=== PATIENT | male | born 1985 | race Two or more races ===

== ENCOUNTER 2016-09-30 16:25 | Emergency (ER) | payer SELFPAY ==
[~2016-09-30] VITALS: Ht 175.3 cm; Wt 72.6 kg
[2016-09-30 17:14] LABS: BASOPHILS % (AUTO) 1.6 % (0.0-2.0); EOSINOPHILS % (AUTO) 0.9 % (0.0-3.0); LYMPHOCYTES % (AUTO) 26.6 % (20.0-45.0); MEAN CORPUSCULAR HEMOGLOBIN 27.2 PG (27.0-31.0); MEAN CORPUSCULAR HGB CONC 33.1 G/DL (32.0-36.0); MEAN CORPUSCULAR VOLUME 82 FL (80-99); MONOCYTES % (AUTO) 9.3 % (1.0-10.0); NEUTROPHILS % (AUTO) 61.6 % (45.0-75.0); PLATELET COUNT 223 K/UL (150-450); RED BLOOD COUNT 5.08 M/UL (4.70-6.10); RED CELL DISTRIBUTION WIDTH 12.7 % (11.6-14.8); WHITE BLOOD COUNT 7.4 K/UL (4.8-10.8)
[2016-09-30 17:29] LABS: ACETAMINOPHEN < 10 ug/mL (10-30); ALANINE AMINOTRANSFERASE 62 U/L (3-41); ALBUMIN/GLOBULIN RATIO 1.5 (1.0-2.7); ALCOHOL < 10 mg/dL; ANION GAP 17 (5-15); ASPARTATE AMINO TRANSFERASE 47 U/L (5-40); CALCIUM 9.3 mg/dL (8.6-10.2); CARBON DIOXIDE 23 mEQ/L (20-30); CHLORIDE 99 mEQ/L (98-107); CREATININE 1.1 mg/dL (0.7-1.2); GLOMERULAR FILTRATION RATE > 60 mL/min (>60); HEMOLYSIS 136; POTASSIUM 5.3 mEQ/L (3.4-4.9); SODIUM 139 mEQ/L (135-145); TOTAL PROTEIN 7.6 g/dL (6.6-8.7)
[2016-09-30 17:32] VITALS: BP 137/89
[2016-09-30 17:36] LABS: APPEARANCE,URINE CLEAR; KETONES,URINE NEGATIVE (NEGATIVE); LEUKOCYTE ESTERASE ,URINE NEGATIVE (NEGATIVE); NITRITE,URINE NEGATIVE (NEGATIVE); PH,URINE 6.5 (4.5-8.0); PROTEIN,URINE NEGATIVE (NEGATIVE); UROBILINOGEN,URINE NORMAL MG/DL (0.0-1.0)
--- NOTE | 2016-09-30 17:54 | Emergency Room Report ---
History of Present Illness General Chief Complaint: Behavioral Complaint Source: Patient Present Illness HPI The patient presents after having a suicide attempt allegedly drinking alcohol and taking Thorazine. He did this yesterday and also repeated today. He's doing this because the voices are telling him to do so. He has not changed his medication recently. He has a history of bipolar disorder. Allergies: Coded Allergies: No Known Allergies (Unverified , 09/30/16) Patient History Past Medical History: see triage record Social History: Reports: alcohol use Reviewed Nursing Documentation: PMH: Agreed, PSxH: Agreed Nursing Documentation-PMH Hx Cardiac Problems: No Hx Hypertension: No Hx Pacemaker: No Hx Asthma: No Hx COPD: No Hx Diabetes: No Hx Cancer: No Hx Gastrointestinal Problems: No Hx Dialysis: No History Of Psychiatric Problem: Yes - bipolar ,depression ,ptsd Hx Neurological Problems: No Hx Cerebrovascular Accident: No Hx Seizures: No Review of Systems All Other Systems: negative except mentioned in HPI Physical Exam Vital Signs Date Time Temp Pulse Resp B/P Pulse Ox O2 Delivery O2 Flow Rate FiO2 09/30/16 16:22 98.1 92 16 120/80 98 Room Air Sp02 EP Interpretation: reviewed, normal General Appearance: no apparent distress, GCS 15, lethargic Head: normocephalic Eyes: bilateral eye PERRL, bilateral eye Scleral Injection ENT: moist mucus membranes Neck: supple Respiratory: lungs clear, normal breath sounds Cardiovascular #1: regular rate, rhythm Cardiovascular #2: 2+ radial (R) Gastrointestinal: normal inspection, normal bowel sounds, non tender, no mass, non-distended Musculoskeletal: back normal, gait/station normal, normal range of motion Neurologic: alert, oriented x3, other - ataxic but sits without difficulty Psychiatric: other - flat affect with lethargy Skin: normal inspection, warm/dry Medical Decision Making Diagnostic Impression: Primary Impression: Drug ingestion Qualified Codes: T50.902A - Poisoning by unspecified drugs, medicaments and biological substances, intentional self-harm, initial encounter Additional Impression: Schizophrenia Qualified Codes: F20.9 - Schizophrenia, unspecified ER Course Patient presents was ideation. He says that he is on herself but the voices are telling him to do so. He plans continue taking overdose of his medications. At this point he needs evaluation with labs. The patient was he some IV hydration as he took excess Thorazine recently. Laboratory patient evaluation was basically unremarkable. The patient is medically stable at 1745. Cleared for D/C with family by Dr. Esquivel. He was coherent and abusive with her. Plan agreed upon to d/c with uncle. Denies suicidal ideation. Patient stable for outpatient observation and treatment. Signed out to Dr. Dhaliwal awaiting ride with family. Laboratory Tests Test 09/30/16 16:50 White Blood Count 7.4 K/UL (4.8-10.8) Red Blood Count 5.08 M/UL (4.70-6.10) Hemoglobin 13.8 G/DL (14.2-18.0) L Hematocrit 41.9 % (42.0-52.0) L Mean Corpuscular Volume 82 FL (80-99) Mean Corpuscular Hemoglobin 27.2 PG (27.0-31.0) Mean Corpuscular Hemoglobin Concent 33.1 G/DL (32.0-36.0) Red Cell Distribution Width 12.7 % (11.6-14.8) Platelet Count 223 K/UL (150-450) Mean Platelet Volume 8.0 FL (6.5-10.1) Neutrophils (%) (Auto) 61.6 % (45.0-75.0) Lymphocytes (%) (Auto) 26.6 % (20.0-45.0) Monocytes (%) (Auto) 9.3 % (1.0-10.0) Eosinophils (%) (Auto) 0.9 % (0.0-3.0) Basophils (%) (Auto) 1.6 % (0.0-2.0) Urine Color Pale yellow Urine Appearance Clear Urine pH 6.5 (4.5-8.0) Urine Specific [place] 1.010 (1.005-1.035) Urine Protein Negative (NEGATIVE) Urine Glucose (UA) Negative (NEGATIVE) Urine Ketones Negative (NEGATIVE) Urine Occult Blood Negative (NEGATIVE) Urine Nitrite Negative (NEGATIVE) Urine Bilirubin Negative (NEGATIVE) Urine Urobilinogen Normal MG/DL (0.0-1.0) Urine Leukocyte Esterase Negative (NEGATIVE) Sodium Level 139 mEQ/L (135-145) Potassium Level 5.3 mEQ/L (3.4-4.9) H Chloride Level 99 mEQ/L (98-107) Carbon Dioxide Level 23 mEQ/L (20-30) Anion Gap 17 (5-15) H Blood Urea Nitrogen 9 mg/dL (7-23) Creatinine 1.1 mg/dL (0.7-1.2) Estimate Glomerular Filtration Rate > 60 mL/min (>60) Glucose Level 96 mg/dL (74-106) Calcium Level 9.3 mg/dL (8.6-10.2) Total Bilirubin 0.2 mg/dL (0.0-1.2) Aspartate Amino Transferase (AST) 47 U/L (5-40) H Alanine Aminotransferase (ALT) 62 U/L (3-41) H Alkaline Phosphatase 97 U/L (40-129) Total Creatine Kinase 315 U/L (38-174) H Total Protein 7.6 g/dL (6.6-8.7) Albumin 4.6 g/dL (3.5-5.2) Globulin 3.0 g/dL Albumin/Globulin Ratio 1.5 (1.0-2.7) Salicylates Level < 1 mg/dL (10-30) L Urine Opiates Screen Pending Acetaminophen Level < 10 ug/mL (10-30) L Urine Barbiturates Screen Pending Phencyclidine (PCP) Screen Pending Urine Amphetamines Screen Pending Urine Benzodiazepines Screen Pending Urine Cocaine Screen Pending Urine Marijuana (THC) Screen Pending Serum Alcohol < 10 mg/dL EKG Diagnostic Results Rate: normal Rhythm: NSR ST Segments: no acute changes Rhythm Strip Diag. Results EP Interpretation: yes Rhythm: NSR, no PVC's, no ectopy Chest X-Ray Diagnostic Results Chest X-Ray Ordered: No Status: improved Disposition: HOME, SELF-CARE - with family Condition: Improved Referrals: NOT CHOSEN KIAN/,REFERRING (PCP) Eulalio Browne M.D. Sep 30, 2016 17:54
[2016-09-30 19:10] VITALS: BP 132/84
[2016-09-30 21:20] VITALS: BP 129/88
[2016-10-01 01:00] VITALS: BP 137/83
[2016-10-01 04:44] VITALS: BP 145/87
[2016-10-01 04:50] VITALS: BP 145/87
--- NOTE | 2016-10-01 23:30 | Consultation ---
DATE OF CONSULTATION: HISTORY OF PRESENT ILLNESS: The patient is a 30-year-old male, who has been admitted to the hospital after he took a handful of his Thorazine as well as his Adderall and Wellbutrin. He was brought in after 911 was called for an overdose. Initially, the patient was lethargic, not engaged during the evaluation. Apparently, per [employer], the patient has overdosed on medication the day prior. During the evaluation, the patient is presenting with no anxiety or agitation. He was irritable and stated that he does not need to see a psychiatrist and would like to be discharged. He denied any suicidal or homicidal ideation. He told Dr. Browne that he has had auditory hallucination and the voices were telling him to kill himself. Then, he told me that he had suicidal ideation. He took go away. PAST PSYCHIATRIC HISTORY: Apparently, he was diagnosed with bipolar disorder with psychotic features versus schizophrenia. He has had several psychiatric hospitalizations. He sees a psychiatrist at a clinic in [place]. He has been prescribed Adderall , Wellbutrin, and Thorazine. He has a lawsuit while on risperidone as he got gynecomastia. The patient states that he has had one suicide attempt in the past where he attempted to strangulate himself with bedsheets. PAST MEDICAL HISTORY: None. ALLERGIES: No known drug allergies. SUBSTANCE ABUSE HISTORY: He denies any illicit drug use or alcohol. MENTAL STATUS EXAMINATION: The patient is oriented x3. Mood is neutral. Affect is constricted. Congruent mood. Thought process is concrete. Thought content, no suicidal or homicidal ideation. ASSESSMENT: AXIS I Bipolar disorder with psychotic features versus schizoaffective disorder with bipolar type. AXIS II Deferred. AXIS III As above. AXIS IV Moderate. AXIS V Global assessment of functioning is 60. PLAN: The patient will be discharged home for further observation. He was instructed to follow up with his psychiatrist after the discharge. At the time of discharge, the patient was not an imminent danger to self or others. He was not gravely disabled. The patient was discharged to his uncle, who is going to be stay with him overnight. Hailey Esquivel M.D. DR: Meredith JOB#: [id number] CC:
--- NOTE | 2016-10-04 20:25 | Cardiology Report ---
APPROVED REPORT EKG Measurement Heart [id number] Normal sinus rhythm Normal ECG
== END 2016-10-01 04:50 | disposition home or self-care (01) ==
LOC: EDBD 16:25 → EMR 17:01
DX: T50.902A Poisoning by unspecified drugs, medicaments and biological substances, intentional self-harm, initial encounter (principal); F20.9 Schizophrenia, unspecified; X58.XXXA Exposure to other specified factors, initial encounter; Y93.9 Activity, unspecified; Y92.9 Unspecified place or not applicable
CPT/HCPCS: 36415; 80053; 80300; 81003; 82550; 85025; 93005; 96374; 99284; G0480; 80329

== ENCOUNTER 2016-10-28 23:38 | Emergency (ER) | payer OTHER ==
[~2016-10-28] VITALS: Ht 170.2 cm; Wt 90.7 kg
[2016-10-28 23:47] VITALS: BP 143/84
--- NOTE | 2016-10-29 00:10 | Emergency Room Report ---
History of Present Illness General Chief Complaint: General Complaint Source: Patient, EMS Present Illness HPI 30-year-old male with a psychiatric history. He presents with chief complaint of right ear pain and fullness. Also with dizziness. Does have some sore throat. No nausea no vomiting. Onset for one hour. He was worried that he may pass out and since he lives alone he called 911. No other complaint. Allergies: Coded Allergies: No Known Allergies (Unverified , 09/30/16) Patient History Past Medical History: see triage record, old chart reviewed, psych hx Past Surgical History: other Pertinent Family History: none Social History: Denies: smoking Immunizations: other Reviewed Nursing Documentation: PMH: Agreed, PSxH: Agreed Nursing Documentation-PMH Past Medical History: No History, Except For Hx Cardiac Problems: No Hx Hypertension: No Hx Pacemaker: No Hx Asthma: No Hx COPD: No Hx Diabetes: No Hx Cancer: No Hx Gastrointestinal Problems: No Hx Dialysis: No History Of Psychiatric Problem: Yes - Anxiety Hx Neurological Problems: No Hx Cerebrovascular Accident: No Hx Seizures: No Review of Systems Eye: Denies: blurred vision, eye pain ENT: Reports: ear pain, Denies: nose congestion, throat swelling Respiratory: Denies: cough, shortness of breath Cardiovascular: Denies: chest pain, palpitations Gastrointestinal: Denies: abdominal pain, diarrhea, nausea, vomiting Musculoskeletal: Denies: back pain, joint pain Skin: Denies: rash Neurological: Denies: headache, numbness Endocrine: Denies: increased thirst, increased urine Hematologic/Lymphatic: Denies: easy bruising All Other Systems: negative except mentioned in HPI Physical Exam Vital Signs Date Time Temp Pulse Resp B/P Pulse Ox O2 Delivery O2 Flow Rate FiO2 10/28/16 23:38 98.1 70 16 143/84 98 Room Air vitals normal Sp02 EP Interpretation: reviewed, normal General Appearance: well appearing, no apparent distress, alert Head: normocephalic, atraumatic Eyes: bilateral eye EOMI, bilateral eye PERRL ENT: hearing grossly normal, normal pharynx, other - Right ear impacted with cerumen. Left TM is normal. Neck: full range of motion, supple, no meningismus Respiratory: chest non-tender, lungs clear, normal breath sounds Cardiovascular #1: regular rate, rhythm, no murmur Gastrointestinal: normal bowel sounds, non tender, no mass, no organomegaly, no bruit, non-distended Musculoskeletal: back normal, gait/station normal, normal range of motion Psychiatric: mood/affect normal Skin: warm/dry Procedures Additional Procedure Procedure Narrative Procedure: Cerumen disimpaction Indication: Cerumen impaction Description: Irrigate the ear canal with normal saline. Using a curet to remove a large cerumen. He checked TMs normal. No perforation. Patient tolerated procedure without a problem. He said he felt better. Medical Decision Making Diagnostic Impression: Primary Impression: Excessive cerumen in right ear canal Additional Impressions: Viral respiratory illness Anxiety ER Course Patient presents with viral illness. No evidence of acute infection. Anxiety is making a situation worse. He felt better with reassurance. We'll discharge home. Last Vital Signs Date Time Temp Pulse Resp B/P Pulse Ox O2 Delivery O2 Flow Rate FiO2 10/28/16 23:47 98.1 16 143/84 98 Room Air 10/28/16 23:38 70 Status: improved Disposition: HOME, SELF-CARE Condition: Stable Additional Instructions: Followup with your DrAngela in 7 days. Return if symptom worsen. AUDREY ROBLERO M.D. Oct 29, 2016 00:10
[2016-10-29 01:05] VITALS: BP 143/84
== END 2016-10-29 01:05 | disposition home or self-care (01) ==
LOC: EDBD 23:38 → EMR 23:51
DX: H61.21 Impacted cerumen, right ear (principal); J06.9 Acute upper respiratory infection, unspecified; B34.9 Viral infection, unspecified; F41.9 Anxiety disorder, unspecified
CPT/HCPCS: 69210; 99282

== ENCOUNTER 2018-06-13 20:49 | Emergency (ER) | payer MEDICAID, OTHER ==
[~2018-06-13] VITALS: Ht 172.7 cm; Wt 113.4 kg
[2018-06-13] MEDS ORDERED: TRAZODONE HCL150 MG ORAL (20:50)
[2018-06-13 20:55] VITALS: BP 145/89
[2018-06-13] MEDS ORDERED: LORazepam Inj 2mg/ml 1ml IV ONE (21:00)
[2018-06-13] MEDS ORDERED: BUSPAR10 MG ORAL (21:06)
--- NOTE | 2018-06-13 21:08 | Emergency Room Report ---
History of Present Illness General Chief Complaint: Chest Pain Source: Patient Present Illness HPI Is a 32-year-old male with a history of schizophrenia. He presents with chief complaint of anxiety and chest pain. Onset for the last hour. Pain is sharp and throbbing to the left chest area. No nausea no vomiting. Not very anxious. He also felt paranoid that people are after him. Denies any alcohol drugs. Nothing made it better. Nothing made it worse. Denies any radiation. Denies any exertional component. No diaphoresis. Pain is 9 out of 10. Allergies: Coded Allergies: HALOPERIDOL (Unverified Allergy, Unknown, 06/13/18) Patient History Past Medical History: see triage record, old chart reviewed, psych hx Past Surgical History: none Pertinent Family History: none Social History: Denies: smoking Immunizations: other Reviewed Nursing Documentation: PMH: Agreed; PSxH: Agreed Nursing Documentation-PMH Past Medical History: No History, Except For Hx Hypertension: Yes Hx Pacemaker: No Hx Asthma: No Hx COPD: No Hx Diabetes: No Hx Cancer: No Hx Gastrointestinal Problems: No Hx Dialysis: No History Of Psychiatric Problem: Yes Hx Neurological Problems: No Hx Cerebrovascular Accident: No Hx Seizures: No Review of Systems Eye: Denies: eye pain, blurred vision ENT: Denies: ear pain, nose congestion, throat swelling Respiratory: Denies: cough, shortness of breath Cardiovascular: Reports: chest pain; Denies: palpitations Gastrointestinal: Denies: abdominal pain, diarrhea, nausea, vomiting Musculoskeletal: Denies: back pain, joint pain Skin: Denies: rash Neurological: Denies: headache, numbness Endocrine: Denies: increased thirst, increased urine Hematologic/Lymphatic: Denies: easy bruising All Other Systems: negative except mentioned in HPI Physical Exam Vital Signs Date Time Temp Pulse Resp B/P (MAP) Pulse Ox O2 Delivery O2 Flow Rate FiO2 06/13/18 20:44 98.2 88 18 118/74 98 Room Air vitals normal Sp02 EP Interpretation: reviewed, normal General Appearance: well appearing, no apparent distress, alert Head: normocephalic, atraumatic Eyes: bilateral eye PERRL, bilateral eye EOMI ENT: hearing grossly normal, normal pharynx Neck: full range of motion, supple, no meningismus Respiratory: chest non-tender, lungs clear, normal breath sounds Cardiovascular #1: regular rate, rhythm, no murmur Gastrointestinal: normal bowel sounds, non tender, no mass, no organomegaly, no bruit, non-distended Musculoskeletal: back normal, gait/station normal, normal range of motion Psychiatric: anxious Skin: warm/dry Medical Decision Making Diagnostic Impression: Primary Impression: Chest pain Qualified Codes: R07.9 - Chest pain, unspecified Additional Impression: Anxiety ER Course Patient with atypical chest pain secondary to anxiety. No evidence of ACS, PE, dissection to name a few. We'll discharge home. EKG Diagnostic Results Rate: normal Rhythm: NSR ST Segments: no acute changes ASA given to the pt in ED: No Rhythm Strip Diag. Results EP Interpretation: yes Rate: 93 Rhythm: NSR, no PVC's, no ectopy Last Vital Signs Date Time Temp Pulse Resp B/P (MAP) Pulse Ox O2 Delivery O2 Flow Rate FiO2 06/13/18 20:44 98.2 88 18 118/74 98 Room Air Status: improved Disposition: HOME, SELF-CARE Condition: Stable Scripts Buspirone Hcl* (BUSPAR*) 10 Mg Tablet 10 MG ORAL THREE TIMES A DAY, #21 TAB 0 Refills Prov: Juan Jose Hawkins MD 06/13/18 Patient Instructions: Nonspecific Chest Pain Additional Instructions: follow-up with your doctor in 7 days. Take your psychiatric medicine. Return if symptom worsen. Juan Jose Hawkins MD Jun 13, 2018 21:08
[2018-06-13 21:12] VITALS: BP 125/75
--- NOTE | 2018-06-14 15:17 | Cardiology Report ---
APPROVED REPORT EKG Measurement Heart [id number] [place] [id number] Normal sinus rhythm with sinus arrhythmia Normal ECG
== END 2018-06-13 21:12 | disposition home or self-care (01) ==
LOC: EDBD 20:49 → EMR 21:00
DX: R07.9 Chest pain, unspecified (principal); F41.9 Anxiety disorder, unspecified; I10 Essential (primary) hypertension
CPT/HCPCS: 93005; 96374; 99283